=== PATIENT | male | born 2000 ===

== ENCOUNTER 2021-06-02 18:18 | Emergency (ER) | payer SELFPAY ==
[2021-06-02 18:36] VITALS: BP 127/68
[2021-06-02] MEDS ORDERED: FAMOTIDINE 20 MG TAB PO ONE (20:17)
[2021-06-02] MEDS ORDERED: METOCLOPRAMIDE 10 MG TAB PO ONE (20:17)
[2021-06-02] MEDS ORDERED: ALUM-MAG HYDROXIDE-SIMETHICONE 200-200-20MG/5ML ORAL LIQD 30 ML PO ONE (20:18)
[2021-06-02] MEDS ORDERED: LIDOCAINE VISCOUS 2% 15 ML ORAL LIQD PO ONE (20:18)
--- NOTE | 2021-06-02 21:30 | Emergency Department Report ---
ED General Adult HPI - General Chief complaint: Medical Clearance Stated complaint: SOB EXCESSIVE HICCUPS AND BURPING PUI?: No Time Seen by Provider: 06/02/21 19:12 Source: patient Mode of arrival: Ambulatory Limitations: No Limitations - History of Present Illness Initial comments: This is a 18-year-old male with no prior medical history who presents to the ED complaining of burping and hiccuping for about a week. Patient states sometimes he burps and causes a little burning sensation in his middle chest. Patient states that his hiccups are happening intermittently without relief. Patient denies chest pain, shortness of breath, abdominal pain, nausea vomiting or diarrhea. - Related Data Previous Rx's Medication Instructions Recorded Last Taken Type Metoclopramide [Reglan] 10 mg PO TID #30 tab 06/02/21 Unknown Rx Omeprazole 20 mg PO DAILY #30 capsule. 06/02/21 Unknown Rx Allergies Allergy/AdvReac Type Severity Reaction Status Date / Time No Known Allergies Allergy Verified 06/02/21 18:34 ED Review of Systems ROS: Stated complaint: SOB EXCESSIVE HICCUPS AND BURPING Other details as noted in HPI Comment: All other systems reviewed and negative ED Past Medical Hx - Past Medical History Previous Medical History?: No - Surgical History Past Surgical History?: No - Medications Home Medications: Home Medications Medication Instructions Recorded Confirmed Last Taken Type Metoclopramide [Reglan] 10 mg PO TID #30 tab 06/02/21 Unknown Rx Omeprazole 20 mg PO DAILY #30 capsule. 06/02/21 Unknown Rx ED Physical Exam - General Limitations: No Limitations General appearance: alert, in no apparent distress - Head Head exam: Present: atraumatic, normocephalic - Eye Eye exam: Present: normal appearance - ENT ENT exam: Present: mucous membranes moist - Neck Neck exam: Present: normal inspection - Respiratory Respiratory exam: Present: normal lung sounds bilaterally. Absent: respiratory distress - Cardiovascular Cardiovascular Exam: Present: regular rate, normal rhythm. Absent: systolic murmur, diastolic murmur, rubs, gallop - GI/Abdominal GI/Abdominal exam: Present: soft, normal bowel sounds - Rectal Rectal exam: Present: deferred - Extremities Exam Extremities exam: Present: normal inspection - Back Exam Back exam: Present: normal inspection - Neurological Exam Neurological exam: Present: alert, oriented X3 - Psychiatric Psychiatric exam: Present: normal affect, normal mood - Skin Skin exam: Present: warm, dry, intact, normal color. Absent: rash ED Course Vital Signs 06/02/21 18:34 Temperature 98.3 F Pulse Rate 66 Respiratory 18 Rate Blood Pressure 127/68 O2 Sat by Pulse 99 Oximetry ED Medical Decision Making - Medical Decision Making This 20-year-old male presented with hiccups most likely from acid reflux. Patient was given Reglan and a GI cocktail in the ED which relieved his symptoms. Patient reported he was feeling better. Discussed with the patient to follow-up with a dock grader. [facility] referral given to patient. Discussed patient to call in the morning and possibly needing an EGD. Vital signs are normal patient is in no acute distress he speaking in clear sentences without any hiccups noticed. At this time patient is safe for discharge. Critical care attestation.: If time is entered above; I have spent that time in minutes in the direct care of this critically ill patient, excluding procedure time. ED Disposition Clinical Impression: Hiccups, Acid reflux Disposition: DC- TO HOME OR SELFCARE Is pt being admited?: No Does the pt Need Aspirin: No Condition: Stable Instructions: Heartburn, [id number], Food Choices for Gastroesophageal Reflux Disease, Adult Additional Instructions: Make sure to follow up with the primary care physician as discussed. Take all your medications as you've been prescribed. If you have any worsening symptoms or develop new symptoms please return to ED immediately. Prescriptions: Omeprazole 20 mg PO DAILY #30 capsule. Metoclopramide [Reglan] 10 mg PO TID #30 tab Referrals: PRIMARY CARE, [Primary Care Provider] - 3-5 Days [facility] [Provider Group] - 3-5 Days [facility] [Provider Group] - 3-5 Days Forms: Work/School Release Form(ED) Time of Disposition: 21:29
== END 2021-06-02 21:38 | disposition home or self-care (01) ==
LOC: ED 18:18
DX: K21.9 Gastro-esophageal reflux disease without esophagitis (principal); R06.6 Hiccough; Z79.899 Other long term (current) drug therapy
CPT/HCPCS: 99282